=== PATIENT | male | born 1960 | race African-American/Black ===

== ENCOUNTER 2017-01-01 07:43 | Emergency (ER) | payer OTHER ==
[~2017-01-01 07:43] MED LIST: FLEXERIL10 MG PO; MEDROL4 MG/DOSE- PO; ORUDIS75 M1 PO; VICODIN 5/1 TAB 5/50 PO
== END 2017-01-01 08:00 | disposition home or self-care (01) ==
LOC: CED 07:43
DX: H57.8 Other specified disorders of eye and adnexa (principal); I10 Essential (primary) hypertension; Z79.899 Other long term (current) drug therapy
CPT/HCPCS: 99283